=== PATIENT | male | born 1965 | race Two or more races ===

== ENCOUNTER 2025-06-10 11:05 | Day surgery (SDC) | payer MEDICAID, SELFPAY ==
--- NOTE | 2025-06-07 11:49 | EKG_ITS ---
[facility] Test Date: 2025-06-07 Pat Name: SARAI PENA Department: Room: - Gender: Male Deputy Head: [place] : 1965 Requested By: Asaf Brunson Order Number: [id number] Reading MD: Asaf Brunson Measurements Intervals [place] Rate: 42 P: 71 MT: 140 QRS: 73 QRSD: 83 T: 46 QT: 462 QTc: 390 Interpretive Statements SINUS BRADYCARDIA No previous ECG available for comparison /store/[id number]
[2025-06-07 11:55] VITALS: BMI 21.2
[2025-06-07 12:19] LABS: Collection Type, Urine Clean Catch; Squamous Epithelial Cell,Urine 0 /hpf (0-5)
[2025-06-07 13:20] LABS: Basophils # (Auto) 0.1 Thou/mm3 (0.0-0.2); Basophils % (Auto) 1 % (0-2.5); Eosinophils # (Auto) 0.0 Thou/mm3 (0.0-0.5); Eosinophils % (Auto) 0 % (0-10); Hematocrit 44.4 % (41.0-53.0); Hemoglobin 15.1 g/dL (13.5-16.0); Immature Granulocytes Auto 0.04 Thou/mm3 (0.00-0.00); Lymphocytes # (Auto) 2.2 Thou/mm3 (1.0-4.8); Lymphocytes % (Auto) 26 % (10-50); Mean Corpuscular HGB Conc 34.0 g/dl (31.0-37.0); Mean Corpuscular Hemoglobin 30.4 pg (25.0-35.0); Mean Corpuscular Volume 90 fL (80-100); Monocytes # (Auto) 0.3 Thou/mm3 (0.0-0.8); Monocytes % (Auto) 4 % (0-12); Neutrophils # (Auto) 5.6 Thou/mm3 (1.8-7.7); Neutrophils % (Auto) 68 % (37-80); Nucleated Red Blood Cell # 0.00 Thou/mm3 (0.00-0.00); Nucleated Red Blood Cell % 0 /100 WBC (0); Platelet Count 250 Thou/mm3 (140-440); RDW Standard Deviation 44.0 fL (35.1-43.9); Red Blood Count 4.96 Miln/mm3 (4.50-5.90); White Blood Count 8.3 Thou/mm3 (3.8-10.6)
[2025-06-07 13:22] LABS: Bilirubin,Urine Negative (Negative); Blood,Urine Negative (Negative); Clarity,Urine Clear (Clear/Hazy); Color,Urine Lt-Yellow (Lt Yel-Yel); Glucose, Urine Negative (Negative); Ketones,Urine Negative (Negative); Leukocyte Esterase,Urine Negative (Negative); Nitrite,Urine Negative (Negative); PH,Urine 7.0 (5.0-7.0); Protein,Urine Negative (Neg - Trace); RBC,Urine 1 /hpf (0-3); Specific Gravity,Urine 1.011 (1.001-1.035); Urobilinogen,Urine Negative mg/dL (0.0-1.0); WBC,Urine < 1 /hpf (0-5)
[2025-06-07 13:26] LABS: Partial Thromboplastin Time 30.1 Seconds (22.0-36.0)
[2025-06-07 13:30] LABS: Alanine Aminotransferase 8 U/L (10-49); Albumin, Serum 4.8 gm/dL (3.5-5.0); Albumin/Globulin Ratio 2.1 (1.2-2.2); Alkaline Phosphatase 85 U/L (46-116); Anion Gap 9 (7-16); Aspartate Amino Transferase 23 U/L (0-34); BUN/Creatinine Ratio 6 Ratio (12-20); Bilirubin,Total 0.7 mg/dL (0.3-1.2); Blood Urea Nitrogen 5 mg/dL (9-23); Calcium 9.6 mg/dL (8.3-10.6); Calcium (Corrected) 9.6 mg/dL (8.5-10.1); Carbon Dioxide 30.5 mMol/L (20.0-31.0); Chloride 104 mMol/L (98-107); Creatinine (Component) 0.8 mg/dL (0.6-1.3); Estimated Creatinine Clearance 83.7 mL/min (>60); Globulin 2.3 gm/dL (2.3-3.5); Glucose 93 mg/dL (74-106); Osmolality,Calculated 282 (275-295); Potassium 3.7 mMol/L (3.4-5.1); Sodium 143 mMol/L (136-145); Total Protein 7.1 gm/dL (5.7-8.2); eGFR > 60 See Note
--- NOTE | 2025-06-07 14:21 | SUR.PREOP ---
EKG reviewed with Dr Sierra.
[2025-06-10] VITALS (8 sets, daily range): BP systolic 123–147; BP diastolic 58–83; PULSE 53–86; RESP 12–20; TEMP 36.2–36.6; O2SAT 98–100; BMI 21.0
--- NOTE | 2025-06-10 06:30 | PD.SURHP ---
HPI Date of Admission 06/10/2025 Chief Complaint Chief Complaint: Left inguinal hernia. HPI This 60 years old gentleman is brought to surgery for repair of left inguinal hernia possible implantation of a patch. The hernia came up several years ago and has been growing in size and pain is increasing. It is interfering with many daily activities. This will be repaired. An informed consent was obtained. The risks include infection and bleeding. There is H/O right inguinal hernia repair. Past Medical History Past Medical History NEUROLOGIC: Negative Neurological Disorders CARDIAC: Negative Cardiac Disorders or Congestive Heart Failure RESPIRATORY: Negative Respiratory Disorders or Chronic Obstructive Pulmonary Disease (COPD) GASTROINTESTINAL: Negative Gastrointestinal Disorders GENITOURINARY: Positive Genitourinary Disorders and Inguinal Hernia; Negative Renal Disease MUSCULOSKELETAL: Positive Musculoskeletal Disorders and Arthritis ENT: Negative History of ENT Problems ENDOCRINE: Negative Endocrine Disorders, Diabetes Mellitus Type 1 or Diabetes Mellitus Type 2 HEMATOLOGIC: Negative Blood Disorders OTHER HISTORY: Positive Chicken Pox; Negative Hospitalization, Autoimmune Disease, Shingles, Blood Transfusions, Anesthesia Reactions, MRSA or Cancer Family History FAMILY HISTORY: Negative Family Psychiatric Problems, Family Respiratory Disorders, Family Cardiac Disorders, Family Gastrointestinal Problems, Family Genitourinary Problems, Family Endocrine Disorders, Family Reproductive Disorders, Family Musculoskeletal Disorders, Family Cancer, Family Surgery or Family Anesthesia Reaction Surgical History SURGICAL: Positive Abdominal Surgery Social History SMOKING STATUS: Never smoker Travel History EBOLA RISK: No Meds Home Medications and Allergies Home Medications ?Medication ?Instructions ?Recorded ?Confirmed ?Type No Known Home Medications 06/07/25 06/07/25 History Allergies Allergy/AdvReac Type Severity Reaction Status Date / Time No Known Allergies Allergy Verified 06/07/25 11:55 Exam Constitutional Constitutional: no acute distress Routine HEENT Exam Head: Present normocephalic Eye: Present EOMI and PERRL ENT: Present mucous membranes moist Routine Neck Exam Neck: Present supple and trachea midline Routine Chest/Breast/Axilla Exam Chest wall: Absent tenderness or mass Routine Respiratory Exam Respiratory: Present chest non-tender, lungs clear, normal breath sounds and no resp distress; Absent respiratory distress Routine Cardiovascular Exam Cardiovascular: Present RRR Routine Abdominal Exam Abdominal: Present soft and normoactive bowel sounds Routine Exam Groin: Present inguinal hernia, tenderness and swelling Routine Extremities Exam Extremities: Present full ROM Routine Skin Exam Skin: Present intact, dry and warm Routine Neurological Exam Neurological: Present alert, oriented X3 and CN II-XII intact Routine Psychiatric Exam Psychiatric: Present normal affect and normal thought process Assessment & Plan Problem List (1) Left inguinal hernia: Status: Acute Plan Repair of left inguinal hernia possible implantation of a patch. Quality Measures Quality Measures none
--- NOTE | 2025-06-10 15:05 | SUR.OPER ---
Patient has two oval shaped red ross on right upper torso
--- NOTE | 2025-06-10 15:52 | SUR.PHASEI ---
pt received from OR in recovery bay 4. pt asleep but responds to voice, breathing unlabored on oxymask 8l. v/s stable. pt dressing to lower abd cdi. report received from Dr. Sierra and Ashlee COREA.
--- NOTE | 2025-06-10 15:52 | PD.SUROPNT ---
Date of Procedure 06/10/25 Pre Op Diagnosis Incarcerated left inguinal hernia Post Op Diagnosis Same with lipoma of the cord Procedure Repair of incarcerated left inguinal hernia and excision of lipoma of the cord on 06/10/2025 Findings This is a 60-year-old gentleman with a painful inguinoscrotal hernia. It is not completely reducible. Upon exploration he was also found to have a lipoma of the cord. Procedure Description Patient was examined in the preop area. Site and site were marked. Procedure was discussed with the patient in detail. The risk benefits alternatives were discussed with the patient and informed consent was obtained. The risks include bleeding infection recurrence of the hernia testicular atrophy and anesthesia related risks. The patient was brought to the operating room and placed on the operating table in supine position. General anesthesia was administered in a satisfactory manner. IV antibiotics were given to the patient. Local anesthesia 0.25% Marcaine was used as an adjunct. Curvilinear oblique incision is made in the left groin. This was deepened through the layers of skin subcutaneous tissue and Clementine's fascia. The superficial inferior epigastric veins were ligated and divided. Hemostasis was achieved. The hernia protrusion is quite large and extending out to from the external ring. External oblique aponeurosis was cleared and the external ring was defined. The shelving edge of the inguinal ligament was defined externally. A longitudinal incision was made in the external oblique aponeurosis. The inguinal canal was opened. The ilioinguinal nerve was protected. Upper and lower flaps of the external oblique aponeurosis were dissected away from the hernia sac. This was retracted with a self-retaining retractor. The cremaster muscle was incised and the hernia sac was identified. Hernia sac was gently dissected circumferentially at the neck. The spermatic vessels were identified and they were protected. After the sac was from the cord structures it was examined and the sliding nature of the hernia sac was found. The peritoneum was closed with 3-0 Vicryl pursestring suture and the hernia was reduced en paco. There was no tight hernia ring. Large lipoma of the spermatic cord was noted to be extending from the internal ring and this was dissected from the cord structures and was removed after suture ligating the neck. This was sent off as specimen. The posterior wall of the inguinal canal was then examined. The conjoined tendon was defined. The posterior wall was repaired with interrupted 0 Ethibond interrupted sutures. This was approximating the the shelving edge of the inguinal ligament with the conjoined tendon and fascia transversalis. The first suture is passing through the periosteum of the pubic tubercle. The second suture was passing through the Abiodun's ligament. Rest of them passing through the shelving edge of the inguinal ligament, fascia transversalis and conjoined tendon. Internal ring was tightened. Enough space was left around the spermatic cord so as to avoid constriction at the internal ring. After the repair was completed, a releasing incision was made in the internal oblique underneath the external oblique and rectus sheath. Operative field is thoroughly irrigated with saline solution and hemostasis is again achieved. The spermatic cord and ilioinguinal nerve placed back into the inguinal canal. External oblique aponeurosis is approximated by 3-0 PDS continuous suture. Subcutaneous tissues approximated by 3-0 Vicryl interrupted sutures and skin is approximated by 4-0 Monocryl subcuticular stitches. Dermabond is applied. Patient tolerated procedure very well. Complications none. Anesthesia GETA Drains None. Implants Implants comments: None. Pathology / specimen Other (Left inguinal hernia sac and lipoma of the cord) Estimated Blood Loss 5 Condition Stable Disposition PACU Surgeon Asaf Brunson MD Surgical Staff Operation Date: 06/10/25 12:45 Case Staff Anesthesiologist: Bonifacio Sierra RNreligion instructor: Karen Orta RN learning support aide Alida nursing surgical services director
--- NOTE | 2025-06-10 16:17 | SUR.PHASEI ---
pt able to tolerate oral fluids without difficulty swallowing or nausea/vomiting.
[2025-06-10] MEDS: ONDANSETRON INJ 2 MG/ML INJ 2 ML 4 MG IVP (16:33)
--- NOTE | 2025-06-10 17:35 | SUR.PHASEII ---
pt awake and alert, breathing unlabored on room air. v/s stable. pt dressing to lower abd cdi. pt able to ambulate to wheelchair with steady gait. d/c instructions given in room with Luana in room, all questions answered. pt d/c via wheelchair with all belongings.
== END 2025-06-10 17:35 | disposition home or self-care (01) ==
PROVIDERS: PCP Family Medicine; Referring Provider Specialist; Visit Provider Specialist
PROC: (CPT 49525; principal; 2025-06-10 12:30)
DX: K40.30 Unilateral inguinal hernia, with obstruction, without gangrene, not specified as recurrent (principal); D17.6 Benign lipomatous neoplasm of spermatic cord; Z01.810 Encounter for preprocedural cardiovascular examination
CPT/HCPCS: 49525; 36415; 80053; 81001; 85025; 85730; 93005; A4649; J0131; J0690; J1100; J2405; J2704; J2710; J2765; J3010; J3490; J1596